=== PATIENT | male | born 1980 | race American Indian/Alaskan Native ===

== ENCOUNTER 2020-05-04 06:55 | Emergency (ER) | payer MEDICAID ==
[2020-05-04 07:38] VITALS: BP 155/95
--- NOTE | 2020-05-04 09:21 | XRay Report ---
LEFT SHOULDER 4 VIEWS INDICATION / CLINICAL INFORMATION: fall, pain COMPARISON: None available. FINDINGS: BONES / JOINT(S): No acute fracture or subluxation. Mild degenerative change at the glenohumeral and AC joint. Reactive change at site of attachment of the rotator cuff upon the humeral head. SOFT TISSUES: No significant abnormality. ADDITIONAL FINDINGS: None. Signer Name: Mazin Iraheta MD Signed: 05/04/2020 9:16 AM Workstation Name: [id number]
[2020-05-04] MEDS ORDERED: oxyCODONE /ACETAMINOPHEN 5-325MG TAB PO ONE (09:36)
--- NOTE | 2020-05-04 10:26 | Emergency Department Report ---
ED Upper Extremity Inj HPI - General Chief Complaint: Shoulder Injury Stated Complaint: FALL Time Seen by Provider: 05/04/20 08:05 Source: EMS Mode of arrival: Wheelchair Limitations: No Limitations - History of Present Illness MD Complaint: Injury to:: left, shoulder Place: home Improves With: none Worsens With: none - Related Data Home Medications Medication Instructions Recorded Confirmed Last Taken Insulin Glargine,Hum.rec.anlog 20 units SQ QHS 10/30/13 06/13/16 10/09/13 [Lantus Solostar] Gabapentin [Neurontin] 800 mg PO BID 11/12/14 06/13/16 Unknown Cyclobenzaprine [Flexeril] 10 mg PO TID PRN 06/13/16 06/13/16 Unknown Insulin Lispro [Humalog] See Protocol SQ TID 06/13/16 06/13/16 Unknown amLODIPine [Norvasc] 10 mg PO DAILY 06/13/16 06/13/16 Unknown carvediloL [Coreg] 6.25 mg PO BID 06/13/16 06/13/16 Unknown lisinopriL [Zestril TAB] 40 mg PO QDAY 06/13/16 06/13/16 Unknown raNITIdine HCl [Zantac 150 MG TAB] 150 mg PO BID 06/13/16 06/13/16 Unknown Previous Rx's Medication Instructions Recorded Last Taken Type Ketorolac [Toradol] 10 mg PO Q6H PRN #10 tablet 05/04/20 Unknown Rx traMADoL [Ultram] 50 mg PO Q4HR PRN #14 tablet 05/04/20 Unknown Rx Allergies Allergy/AdvReac Type Severity Reaction Status Date / Time latex Allergy Unknown Verified 10/30/13 04:12 ED Review of Systems ROS: Stated complaint: FALL Other details as noted in HPI Comment: All other systems reviewed and negative ED Past Medical Hx - Past Medical History Previous Medical History?: Yes Hx Hypertension: Yes Hx Congestive Heart Failure: No Hx Diabetes: Yes Hx Psychiatric Treatment: No (Is required by parole to get eval at [facility], they have been in contact) Hx Asthma: No Hx COPD: No Hx HIV: No Additional medical history: I'm uncertain as to the reason for this injury under psychiatric by the nursing staff. - Surgical History Past Surgical History?: Yes Additional Surgical History: left toe amputation, diabetic ulcer to left leg with scheduled amputation on 12/21/14 - Social History Smoking Status: Unknown if ever smoked Substance Use Type: None - Medications Home Medications: Home Medications Medication Instructions Recorded Confirmed Last Taken Type Insulin Glargine,Hum.rec.anlog 20 units SQ QHS 10/30/13 06/13/16 10/09/13 History [Lantus Solostar] Gabapentin [Neurontin] 800 mg PO BID 11/12/14 06/13/16 Unknown History Cyclobenzaprine [Flexeril] 10 mg PO TID PRN 06/13/16 06/13/16 Unknown History Insulin Lispro [Humalog] See Protocol SQ TID 06/13/16 06/13/16 Unknown History amLODIPine [Norvasc] 10 mg PO DAILY 06/13/16 06/13/16 Unknown History carvediloL [Coreg] 6.25 mg PO BID 06/13/16 06/13/16 Unknown History lisinopriL [Zestril TAB] 40 mg PO QDAY 06/13/16 06/13/16 Unknown History raNITIdine HCl [Zantac 150 MG TAB] 150 mg PO BID 06/13/16 06/13/16 Unknown History Ketorolac [Toradol] 10 mg PO Q6H PRN #10 tablet 05/04/20 Unknown Rx traMADoL [Ultram] 50 mg PO Q4HR PRN #14 tablet 05/04/20 Unknown Rx ED Physical Exam - General Limitations: No Limitations General appearance: alert, in no apparent distress - Head Head exam: Present: atraumatic, normocephalic - Eye Eye exam: Present: normal appearance - ENT ENT exam: Present: mucous membranes moist - Neck Neck exam: Present: normal inspection - Respiratory Respiratory exam: Present: normal lung sounds bilaterally. Absent: respiratory distress - Cardiovascular Cardiovascular Exam: Present: regular rate, normal rhythm. Absent: systolic murmur, diastolic murmur, rubs, gallop - GI/Abdominal GI/Abdominal exam: Present: soft, normal bowel sounds - Rectal Rectal exam: Present: deferred - Extremities Exam Extremities exam: Present: normal inspection, tenderness, normal capillary refill - Expanded Upper Extremity Exam Left Shoulder Exam: Present: tenderness (With range of motion pain with Parisi test pain with Neer test. No deformity no sulcus sign.), tenderness over AC joint. Absent: abrasion, laceration, ecchymosis - Back Exam Back exam: Present: normal inspection - Neurological Exam Neurological exam: Present: alert, oriented X3 - Psychiatric Psychiatric exam: Present: normal affect, normal mood - Skin Skin exam: Present: warm, dry, intact, normal color. Absent: rash ED Course Vital Signs 05/04/20 05/04/20 07:38 09:52 Temperature 97.8 F Pulse Rate 67 Respiratory 18 18 Rate Blood Pressure 155/95 [Right] O2 Sat by Pulse 98 Oximetry ED Medical Decision Making - Radiology Data Radiology results: report reviewed [facility] [address] [place] [address] XRay Report Signed Patient: ANEESH CHANDLER MR# : [id number] : 1980 Acct:[id number] Age/Sex: 40 / M ADM Date: 05/04/20 Loc: ED Attending Dr: Ordering Physician: KAELYN PHILLIPS MD Date of Service: 05/04/20 Procedure(s): XR shoulder 2+V LT Accession Number(s): [id number] cc: ED MD JACQUELINE Fluoro Time In Minutes: LEFT SHOULDER 4 VIEWS INDICATION / CLINICAL INFORMATION: fall, pain COMPARISON: None available. FINDINGS: BONES / JOINT(S): No acute fracture or subluxation. Mild degenerative change at the glenohumeral and AC joint. Reactive change at site of attachment of the rotator cuff upon the humeral head. SOFT TISSUES: No significant abnormality. ADDITIONAL FINDINGS: None. Signer Name: Mazin Iraheta MD Signed: 05/04/2020 9:16 AM Workstation Name: [id number] Transcribed By: ES Dictated By: Mazin Iraheta MD Electronically Authenticated By: Mazin Iraheta MD Signed Date/Time: 05/04/20915 DD/ 4 TD/TT: Critical care attestation.: If time is entered above; I have spent that time in minutes in the direct care of this critically ill patient, excluding procedure time. ED Disposition Clinical Impression: Shoulder strain Disposition: DC-01 TO HOME OR SELFCARE Is pt being admited?: No Does the pt Need Aspirin: No Condition: Stable Instructions: Shoulder Sprain (ED), Rotator Cuff Injury (ED) Prescriptions: Ketorolac [Toradol] 10 mg PO Q6H PRN #10 tablet PRN Reason: Pain traMADoL [Ultram] 50 mg PO Q4HR PRN #14 tablet PRN Reason: Pain Referrals: PRIMARY CARE,MD [Primary Care Provider] - 3-5 Days [facility] [Provider Group] - 3-5 Days
== END 2020-05-04 10:57 | disposition home or self-care (01) ==
LOC: ED 06:55
DX: S46.912A Strain of unspecified muscle, fascia and tendon at shoulder and upper arm level, left arm, initial encounter (principal); I10 Essential (primary) hypertension; E11.9 Type 2 diabetes mellitus without complications; Z98.890 Other specified postprocedural states; Z79.4 Long term (current) use of insulin; Z79.899 Other long term (current) drug therapy; Z91.040 Latex allergy status; W19.XXXA Unspecified fall, initial encounter; Y93.89 Activity, other specified; Y92.098 Other place in other non-institutional residence as the place of occurrence of the external cause; Y99.8 Other external cause status
CPT/HCPCS: 99283